=== PATIENT | male | born 1955 | race Caucasian/White ===

== ENCOUNTER 2016-07-02 10:36 | Emergency (ER) | payer OTHER ==
[~2016-07-02] VITALS: Ht 182.9 cm; Wt 129.3 kg
--- NOTE | 2016-07-02 11:21 | ED HAND/WRIST INJURY COMPLAINT ---
History of Present Illness General Chief Complaint: Laceration Procedure Stated Complaint: LAC TO R FINGER Source: patient Exam Limitations: no limitations Vital Signs & Intake/Output Vital Signs & Intake/Output Vital Signs Date Time Temp Pulse Resp B/P Pulse O2 O2 Flow FiO2 Ox Delivery Rate 07/02 1110 96.4 92 20 121/84 99 Room Air Room Air Allergies Uncoded Allergies: ? ANTIBIOTIC (Intermediate, RASH 07/02/16) Reconcile Medications Aspirin (Ecotrin*) 325 MG TABLET.DR 1 TAB PO DAILY HEART HEALTH (Reported) Metoprolol Tartrate 25 MG TABLET 0.5 TAB PO BID HEART (Reported) Triage Note: PT TO ED S/P CUT RIGHT RING FINGER ON A BIG SCREEN TV. DSD APPLIED, LONG LAC NOTED, OOZING BLOOD. LAST TETANUS: YEARS AGO. Triage Nurses Notes Reviewed? yes HPI: patient is a 61-year-old male presents complaining of laceration to his right ring finger. Patient reports he lacerated it on a big screen television approximately 2 hours ago. Pain is 0 out of 10, mild pain with palpation and movement. Patient is right-hand dominant. Patient is unsure of his last tetanus immunization. Patient denies numbness or decreased range of motion. (CARLOS HOUSE) Past History Travel History Traveled to [place] past 21 day No Medical History Any Pertinent Medical History? see below for history Neurological: NONE EENT: NONE Cardiovascular: hypertension Respiratory: NONE Gastrointestinal: NONE Hepatic: NONE Renal: NONE Musculoskeletal: NONE Psychiatric: NONE Endocrine: NONE Blood Disorders: NONE Cancer(s): NONE [employer] MACHINE OPERATOR/Reproductive: NONE Surgical History Surgical History: non-contributory Psychosocial History What is your primary language Mexican Tobacco Use: Quit >30 days ago ETOH Use: occasional use Illicit Drug Use: denies illicit drug use Family History Hx Contributory? No (CARLOS HOUSE) Review of Systems Review of Systems Constitutional: Reports: no symptoms. Cardiovascular: Denies: chest pain. GI: Denies: abdominal pain. Musculoskeletal: Reports: see HPI. Skin: Reports: see HPI. Neurological/Psychological: Denies: numbness, paresthesia. Hematologic/Endocrine: Reports: bleeding (from wound). Immunologic/Allergic: Reports: no symptoms. (CARLOS HOUSE) Physical Exam Physical Exam General Appearance: well developed/nourished, alert, awake Head: atraumatic Eyes: Bilateral: normal appearance. Ears, Nose, Throat: hearing grossly normal Neck: normal inspection, full range of motion Cardiovascular/Respiratory: no respiratory distress Back: normal range of motion Wrist Right: normal range of motion, normal inspection Hand Left: normal inspection, normal range of motion Hand Right: 3 cm laceration to the dorsal surface of the right ring finger over the PIP and middle phalanx. Full range of motion. No visible or functional tendon deficits. No visible or palpable foreign bodies. Neurologic/Tendon: normal sensation, normal motor functions, normal tendon functions Skin: warm/dry, normal capillary refill (CARLOS HOUSE) Progress Differential Diagnosis: laceration, tendon laceration, fracture, foreign body Plan of Care: Current Medications Sig/Mirian Start time Last Medication Dose Stop Time Status Admin Lidocaine 20 ML ONCE ONE 07/02 1129 UNVr (Lidocaine 1%) 07/02 1130 Tetanus/Diphtheria 0.5 ML ONCE ONE 07/02 1129 UNVr Toxoids Adsorbed 07/02 1130 (Decavac) On repeat exam after digital block there appears to be a tendon laceration that runs longitudinally through the middle of one of the extensor tendons. No functional deficits. This was discussed with the patient. Patient instructed to follow up with hand surgery for further evaluation. Patient gets his medical care from the [facility] and will contact his primary doctor on Monday for referral. Patient also provided with information for [facility] hand surgeons if he is not able to follow up with a [place] hand specialist. (CARLOS HOUSE) Departure Departure Time of Disposition: 1203 Disposition: HOME OR SELF CARE Condition: Stable Clinical Impression Primary Impression: Finger laceration Qualifiers: Encounter type: initial encounter Qualified Code: S61.219A - Laceration without foreign body of unspecified finger without damage to nail, initial encounter Secondary Impressions: Extensor tendon laceration of finger with open wound Qualifiers: Encounter type: initial encounter Qualified Codes: S66.529A - Laceration of intrinsic muscle, fascia and tendon of unspecified finger at wrist and hand level, initial encounter; S61.209A - Unspecified open wound of unspecified finger without damage to nail, initial encounter Referrals: ENIO PATTERSON,JEANINE ANDRES MD,ALLY (PCP) YOBANI PATTERSON,MARIBELL CARPIO MD,RICARDA Haynes Additional Instructions: Follow-up with a hand surgeon within 1 week for further evaluation. Contact your primary doctor [place] for this referral or follow-up with one of the hand specialists listed in her discharge paperwork, call Monday for appointment. Keep the finger splint on for support and healing. Return to the emergency department immediately if pus from the wound, redness spanning from the wound, increasing pain, fevers, or worsening symptoms. Departure Forms: Customer Survey General Discharge Information (CARLOS HOUSE) PA/NEUROPSYCHOLOGY DIRECTOR Co-Sign Statement Statement: ED Attending supervision documentation- [] I saw and evaluated the patient. I have also reviewed all the pertinent lab results and diagnostic results. I agree with the findings and the plan of care as documented in the PA's/NEUROPSYCHOLOGY DIRECTOR's documentation. [X] I have reviewed the ED Record and agree with the PA's/NEUROPSYCHOLOGY DIRECTOR's documentation. [] Additions or exceptions (if any) to the PAs/NEUROPSYCHOLOGY DIRECTOR's note and plan are summarized below: [] (RIMA PATTERSON,RAJNI) Procedures Laceration/Wound Repair Progress: Area prepped with Betadine. 4 mL of 1% lidocaine for digital block. Irrigated with 300 mL of sterile water. On repeat exam there appears to be a partial tendon laceration of one of the extensor tendons. 8 simple interrupted 5-0 monosof sutures placed by me. Bacitracin, clean dressing and finger splint placed by RN. (CARLOS HOUSE)
[2016-07-02] MEDS ORDERED: METOPROLOL TART25 M1 PO (11:42)
[2016-07-02] MEDS ORDERED: ASPIRIN EC325 M2 PO (11:42)
== END 2016-07-02 12:12 ==
LOC: ERH 10:36
DX: S61.214A Laceration without foreign body of right ring finger without damage to nail, initial encounter (principal); S66.320A Laceration of extensor muscle, fascia and tendon of right index finger at wrist and hand level, initial encounter; W45.8XXA Other foreign body or object entering through skin, initial encounter
CPT/HCPCS: 90471; 90714